=== PATIENT | male | born 1970 | race African-American/Black ===

== ENCOUNTER 2021-01-20 09:02 | Emergency (ER) | payer OTHER ==
[2021-01-20 09:13] VITALS: BP 137/83; PULSE 78; TEMP 98; BMI 28.5
[2021-01-20] MEDS ORDERED: KETOROLAC TROMETHAMINE 30 MG/1 ML VIAL IM ONE (09:29)
[2021-01-20] MEDS ORDERED: KETOROLAC TROMETHAMINE 30 MG/1 ML VIAL ONE (10:03)
== END 2021-01-20 10:09 | disposition home or self-care (01) ==
LOC: JER 09:02
PROC: 3E0233Z Introduction of Anti-inflammatory into Muscle, Percutaneous Approach (ICD-10-PCS; principal; 2021-01-20)
DX: M25.552 Pain in left hip (principal); R22.42 Localized swelling, mass and lump, left lower limb; W17.89XA Other fall from one level to another, initial encounter
CPT/HCPCS: 73070-TC-RT-FY; 73110-TC-RT-FY; 73523-TC-FY; 73610-TC-LT-FY; 73630-TC-LT; 99285-25

== ENCOUNTER 2021-01-21 15:21 | Emergency (ER) | payer OTHER ==
[2021-01-21 15:33] VITALS: BP 151/90; PULSE 78; TEMP 97.8; BMI 29.2
[2021-01-21] MEDS ORDERED: KETOROLAC TROMETHAMINE 30 MG/1 ML VIAL IM ONE (16:13)
[2021-01-21] MEDS ORDERED: KETOROLAC TROMETHAMINE 30 MG/1 ML VIAL ONE (16:23)
== END 2021-01-21 16:33 | disposition home or self-care (01) ==
LOC: JERFT 15:21
PROC: 3E0233Z Introduction of Anti-inflammatory into Muscle, Percutaneous Approach (ICD-10-PCS; principal; 2021-01-21)
DX: M79.605 Pain in left leg (principal); M54.50 Low back pain, unspecified
CPT/HCPCS: 99284-25